=== PATIENT | male | born 1940 | race Caucasian/White ===

== ENCOUNTER 2017-05-05 19:15 | Emergency (ER) | payer MEDICARE, OTHER, BC ==
[~2017-05-05] VITALS: Ht 180.3 cm; Wt 84.1 kg
[2017-05-05 19:28] VITALS: TEMP 97.2
[2017-05-05 20:07] LABS: COLLECTION METHOD CLEAN CATCH
[2017-05-05 20:15] LABS: MUCOUS Present /lpf; PH 5 (5-8); SQUAMOUS EPITHELIAL None Seen /hpf; URINE APPEARANCE Cloudy; URINE BACTERIA Rare /hpf; URINE BILIRUBIN Negative (NEGATIVE); URINE BLOOD 3+ (NEGATIVE); URINE COLOR Amber; URINE GLUCOSE Negative (NEGATIVE); URINE KETONE Negative (NEGATIVE); URINE LEUKOCYTE ESTERASE Negative (NEGATIVE); URINE NITRATE Negative (NEGATIVE); URINE PROTEIN(semi-quant) 2+ (NEGATIVE); URINE RBC >50 /hpf; URINE UROBILINOGEN Negative (NEGATIVE)
[2017-05-05 20:17] LABS: BASO # 0.1 (0.0-0.2); BASO % 0.5 % (0.0-2.0); EOS # 0.2 (0.0-0.7); EOS % 1.8 % (0-4.0); GRAN # 9.4 (1.4-6.5); HEMATOCRIT 42.2 % (42.0-52.0); HEMOGLOBIN 14.3 g/dl (13.5-18.0); LYMPH # 1.2 (1.2-3.4); LYMPH % 9.7 % (20.0-51.0); MEAN CELL VOLUME 88 fl (80.0-100.0); MEAN CORPUSCULAR HEMOGLOBIN 30 pg (27.0-31.0); MEAN CORPUSCULAR HGB CONC 34 g/dl (33.0-37.0); MEAN PLATELET VOLUME 9.6 fl (7.4-10.4); MONO # 1.5 (0.1-0.6); MONO % 11.7 % (1.7-9.3); PLATELET COUNT 230 K/mm3 (130-400); RED BLOOD COUNT 4.81 M/mm3 (4.20-5.60); REDCELL DISTRIBUTION WIDTH-CV 13.5 % (11.5-14.5)
[2017-05-05 20:27] LABS: ALBUMIN 4.5 gm/dL (3.5-5.0); BILIRUBIN,TOTAL 1.2 mg/dL (0.0-1.0); CALCIUM 9.3 mg/dL (8.4-10.2); CREATININE, serum 0.97 mg/dL (0.66-1.25); POTASSIUM 4.1 mmol/L (3.4-5.0); TOTAL PROTEIN 7.7 gm/dL (6.4-8.2)
[2017-05-05] MEDS ORDERED: LIPITOR 10MG10 MG PO (21:17)
[2017-05-05] MEDS ORDERED: REFRESH CELLUVI1 SOL OP (21:17)
[2017-05-05] MEDS ORDERED: TRAVATAN Z 5 ML5 ML (21:18)
[2017-05-05] MEDS ORDERED: PRILOSEC 20MG20 MG PO (21:18)
[2017-05-05] MEDS ORDERED: PROSCAR 5MG5 MG PO (21:19)
[2017-05-05] MEDS ORDERED: RAPAFLO4 MG PO (21:19)
[2017-05-05] MEDS ORDERED: LASIX 40MG TABL40 MG PO (21:19)
[2017-05-05] MEDS ORDERED: TOPROL XL 50MG50 MG PO (21:19)
[2017-05-05] MEDS ORDERED: LOTEMAX 5 ML 5 M5 ML (21:20)
[2017-05-05] MEDS ORDERED: PREDFORTE5ML (21:20)
[2017-05-05] MEDS ORDERED: VITAMIN C500 MG PO (21:20)
[2017-05-05] MEDS ORDERED: MULTI VITAMINS1 TAB PO (21:21)
[2017-05-05] MEDS ORDERED: ASPIRIN 81M81 MG/TA2 PO (21:21)
[2017-05-05 22:17] VITALS: BP 153/94; PULSE 70
== END 2017-05-05 22:10 | disposition home or self-care (01) ==
LOC: COL.ER 19:15
PROVIDERS: Emergency Medicine
DX: N20.0 Calculus of kidney (principal); I10 Essential (primary) hypertension; E78.5 Hyperlipidemia, unspecified; Z90.49 Acquired absence of other specified parts of digestive tract; Z79.52 Long term (current) use of systemic steroids; Z79.82 Long term (current) use of aspirin; Z87.891 Personal history of nicotine dependence
CPT/HCPCS: J0696; J2765; J3010; J7030

== ENCOUNTER 2018-05-04 15:24 | Emergency (ER) | payer MEDICARE, OTHER, BC ==
[~2018-05-04] VITALS: Ht 177.8 cm; Wt 77.3 kg
[~2018-05-04 15:24] MED LIST: ASPIRIN 81M81 MG/TA2 PO; LASIX 40MG TABL40 MG PO; LIPITOR 10MG10 MG PO; LOTEMAX 5 ML 5 M5 ML; MULTI VITAMINS1 TAB PO; PREDFORTE5ML; PRILOSEC 20MG20 MG PO; PROSCAR 5MG5 MG PO; RAPAFLO4 MG PO; REFRESH CELLUVI1 SOL OP; TOPROL XL 50MG50 MG PO; TRAVATAN Z 5 ML5 ML; VITAMIN C500 MG PO
[2018-05-04 15:32] VITALS: TEMP 97.8
[2018-05-04 16:12] LABS: BASO % 0.5 % (0.0-2.0); EOS # 0.1 (0.0-0.7); EOS % 1.2 % (0-4.0); GRAN # 7.1 (1.4-6.5); GRAN % 82.5 % (42.2-75.2); HEMATOCRIT 39.7 % (42.0-52.0); HEMOGLOBIN 13.4 g/dl (13.5-18.0); LYMPH # 0.7 (1.2-3.4); LYMPH % 7.5 % (20.0-51.0); MEAN CELL VOLUME 87 fl (80.0-100.0); MEAN CORPUSCULAR HEMOGLOBIN 29 pg (27.0-31.0); MEAN CORPUSCULAR HGB CONC 34 g/dl (33.0-37.0); MEAN PLATELET VOLUME 9.6 fl (7.4-10.4); MONO # 0.7 (0.1-0.6); MONO % 8.1 % (1.7-9.3); PLATELET COUNT 184 K/mm3 (130-400); RED BLOOD COUNT 4.57 M/mm3 (4.20-5.60)
[2018-05-04 16:22] LABS: ALBUMIN 4.2 gm/dL (3.5-5.0); BILIRUBIN,TOTAL 1.1 mg/dL (0.0-1.0); CALCIUM 9.6 mg/dL (8.4-10.2); CREATININE, serum 0.95 mg/dL (0.66-1.25); POTASSIUM 4.2 mmol/L (3.4-5.0)
[2018-05-04 17:24] LABS: COLLECTION METHOD CLEAN CATCH
[2018-05-04 17:44] LABS: MUCOUS Present /lpf; PH 5 (5-8); SQUAMOUS EPITHELIAL None Seen /hpf; URINE APPEARANCE Hazy; URINE BACTERIA None Seen /hpf; URINE BILIRUBIN Negative (NEGATIVE); URINE BLOOD 3+ (NEGATIVE); URINE COLOR Yellow; URINE GLUCOSE Negative (NEGATIVE); URINE KETONE 1+ (NEGATIVE); URINE LEUKOCYTE ESTERASE Negative (NEGATIVE); URINE NITRATE Negative (NEGATIVE); URINE PROTEIN(semi-quant) Negative (NEGATIVE); URINE RBC >50 /hpf; URINE UROBILINOGEN Negative (NEGATIVE)
[2018-05-04] MEDS ORDERED: NORCO 325 MG-51 TAB PO (18:25)
[2018-05-04] MEDS ORDERED: ZOFRAN ODT4 MG PO (18:25)
[2018-05-04 18:37] VITALS: BP 154/84; PULSE 76
== END 2018-05-04 18:37 | disposition home or self-care (01) ==
LOC: COL.ER 15:24
PROVIDERS: Emergency Medicine
DX: N20.1 Calculus of ureter (principal); I10 Essential (primary) hypertension; E78.5 Hyperlipidemia, unspecified; Z87.442 Personal history of urinary calculi
CPT/HCPCS: J2405; J3010; J7030

== ENCOUNTER 2018-06-27 07:34 | Outpatient (CLI) | payer MEDICARE, BC, OTHER ==
[~2018-06-27] VITALS: Ht 177.8 cm; Wt 76.0 kg
[~2018-06-27 07:34] MED LIST changes: -LOTEMAX 5 ML 5 M5 ML; +LOTEMAX 5 ML 5 M5 ML OS; +NORCO 325 MG-51 TAB PO; +ZOFRAN ODT4 MG PO
[2018-06-27] MEDS ORDERED: ELIQUIS 5MG PO (08:28)
[2018-06-27] MEDS ORDERED: VITAMIN D31000 I1 PO (08:30)
[2018-06-27 08:51] LABS: HEMATOCRIT 37.6 % (42.0-52.0); HEMOGLOBIN 12.4 g/dl (13.5-18.0); MEAN CELL VOLUME 90 fl (80.0-100.0); MEAN CORPUSCULAR HEMOGLOBIN 30 pg (27.0-31.0); MEAN CORPUSCULAR HGB CONC 33 g/dl (33.0-37.0); MEAN PLATELET VOLUME 10.1 fl (7.4-10.4); PLATELET COUNT 152 K/mm3 (130-400); REDCELL DISTRIBUTION WIDTH-CV 14.2 % (11.5-14.5)
[2018-06-27 08:57] LABS: INR 1.3 (0.8-3.0); PROTHROMBIN TIME 14.5 SECONDS (9.7-12.8)
[2018-06-27 09:00] VITALS: BP 146/88; PULSE 64; TEMP 98
[2018-06-27 09:01] LABS: CALCIUM 9.1 mg/dL (8.4-10.2); CREATININE, serum 0.84 (0.66-1.25); POTASSIUM 4.1 mmol/L (3.4-5.0)
[2018-06-27] MEDS ORDERED: RESTASIS0.05% OU (09:17)
[2018-06-27] MEDS ORDERED: FLAXSEED OIL1000 MG PO (09:19)
[2018-06-27] MEDS ORDERED: UNDECYLENIC ACID TOP (09:27)
[2018-06-27] MEDS ORDERED: LOTEMAX 5 ML 5 M5 ML OD (09:30)
[2018-06-27] MEDS ORDERED: REFRESH OPTIVE0.4 M1 OP (09:35)
[2018-06-27] MEDS ORDERED: SYSTANE 0.4%-0.1 SOL OD (09:37)
[2018-06-27 10:26] VITALS: BP 146/86; PULSE 73
--- NOTE | 2018-06-27 10:26 | NUR ---
Report from Cruz Smith RN-Pt reginald MARIA ELENA well. Pt resting well in bed, at bedside.
[2018-06-27 10:41] VITALS: BP 149/89; PULSE 85; TEMP 97.8
[2018-06-27 10:56] VITALS: BP 155/90; PULSE 64
--- NOTE | 2018-06-27 11:15 | NUR ---
Pt has ambulated, voided and reginald PO intake s n/v. PIV removed with catheter intact.
[2018-06-27 11:20] VITALS: BP 152/85; PULSE 62
--- NOTE | 2018-06-27 11:40 | NUR ---
Pt discharged per w/c by nurse with .
== END 2018-06-27 11:47 | disposition home or self-care (01) ==
LOC: COL.RAD 07:34
PROVIDERS: Internal Medicine Cardiovascular Disease
DX: I34.0 Nonrheumatic mitral (valve) insufficiency (principal)
CPT/HCPCS: J2704; J7030

== ENCOUNTER 2018-12-04 20:31 | Emergency (ER) | payer MEDICARE, BC, OTHER ==
[~2018-12-04] VITALS: Ht 177.8 cm; Wt 77.3 kg
[~2018-12-04 20:31] MED LIST changes: +ELIQUIS 5MG PO; +FLAXSEED OIL1000 MG PO; +LOTEMAX 5 ML 5 M5 ML OD; +REFRESH OPTIVE0.4 M1 OP; +RESTASIS0.05% OU; +SYSTANE 0.4%-0.1 SOL OD; +UNDECYLENIC ACID TOP; +VITAMIN D31000 I1 PO
[2018-12-04 20:46] VITALS: TEMP 97.1
[2018-12-04 21:55] LABS: COLLECTION METHOD CLEAN CATCH
[2018-12-04 22:09] LABS: BASO % 0.7 % (0.0-2.0); EOS # 0.2 (0.0-0.7); EOS % 4.4 % (0-4.0); GRAN # 3.4 (1.4-6.5); GRAN % 62.3 % (42.2-75.2); HEMATOCRIT 37.8 % (42.0-52.0); HEMOGLOBIN 12.5 g/dl (13.5-18.0); LYMPH # 0.9 (1.2-3.4); LYMPH % 17.2 % (20.0-51.0); MEAN CELL VOLUME 90 fl (80.0-100.0); MEAN CORPUSCULAR HEMOGLOBIN 30 pg (27.0-31.0); MEAN CORPUSCULAR HGB CONC 33 g/dl (33.0-37.0); MEAN PLATELET VOLUME 9.8 fl (7.4-10.4); MONO # 0.8 (0.1-0.6); PLATELET COUNT 203 K/mm3 (130-400); REDCELL DISTRIBUTION WIDTH-CV 13.9 % (11.5-14.5)
[2018-12-04 22:17] LABS: ALBUMIN 4.3 gm/dL (3.5-5.0); BILIRUBIN,TOTAL 0.5 mg/dL (0.0-1.0); CALCIUM 8.8 mg/dL (8.4-10.2); CREATININE, serum 0.93 (0.66-1.25); POTASSIUM 3.9 mmol/L (3.4-5.0); TOTAL PROTEIN 6.9 gm/dL (6.4-8.2)
[2018-12-04 22:20] LABS: AMORPHOUS CRYSTAL Present /uL; MUCOUS Present /lpf; PH 5 (5-8); URINE APPEARANCE Turbid; URINE BACTERIA Rare /hpf; URINE BILIRUBIN Negative (NEGATIVE); URINE BLOOD 3+ (NEGATIVE); URINE COLOR Amber; URINE GLUCOSE Negative (NEGATIVE); URINE KETONE Negative (NEGATIVE); URINE LEUKOCYTE ESTERASE Negative (NEGATIVE); URINE NITRATE Negative (NEGATIVE); URINE PROTEIN(semi-quant) 2+ (NEGATIVE); URINE RBC >50 /hpf
[2018-12-05] MEDS ORDERED: FLOMAX 0.40.4 MG/CAP PO ×2 (00:53→10:47)
[2018-12-05] MEDS ORDERED: CIPRO 500MG TA500 MG PO ×2 (00:56→10:47)
[2018-12-05 01:09] VITALS: BP 138/84; PULSE 73
== END 2018-12-05 01:12 | disposition home or self-care (01) ==
LOC: COL.ER 20:31
PROVIDERS: Emergency Medicine
DX: N20.1 Calculus of ureter (principal); I10 Essential (primary) hypertension; Z90.89 Acquired absence of other organs; Z87.891 Personal history of nicotine dependence; E78.5 Hyperlipidemia, unspecified; Z87.442 Personal history of urinary calculi
CPT/HCPCS: A4216; J0696; J7030

== ENCOUNTER 2018-12-06 05:20 | Day surgery (SDC) | payer MEDICARE, BC, OTHER ==
[2018-12-06] VITALS (10 sets, daily range): BP systolic 136–156; BP diastolic 65–83; PULSE 59–77; TEMP 97.6–98.2
[~2018-12-06] VITALS: Ht 177.8 cm; Wt 75.7 kg
[~2018-12-06 05:20] MED LIST changes: +CIPRO 500MG TA500 MG PO; +FLOMAX 0.40.4 MG/CAP PO
--- NOTE | 2018-12-06 05:58 | NUR ---
Pt. arrived to the floor by wheelchair. Pt. is A&OX3, assessment complete.
--- NOTE | 2018-12-06 09:00 | NUR ---
Patient is back from surgery. Denies pain at this time. No complaints of nausea. Explained he has to eat, drink and urinate before going home. Patient verbalized understanding. No other changes at this time. Patients is at bedside. No other changes at this time. Call light within reach.
--- NOTE | 2018-12-06 12:00 | NUR ---
Patient is voiding. He is worried because he has some blood in his urine. Explained that can happen after this procedure. No clots noted in his urine. Explained that drinking water and fluids will help keep the bladder flushed. Patient denies pain or burning with urination. No other changes at this time. Call light within reach.
--- NOTE | 2018-12-06 13:10 | NUR ---
Patient is discharging home. Discharge instructions discussed with patient. No questions verbalized. INT discontinued. Explained they need to call Saturday to schedule a follow up appointment. already has patients belongings packed up. Copie of discharge instructions sent with patient. Patient walked out via wheel chair by Tangela BAY.
--- NOTE | 2018-12-06 14:57 | NUR ---
Plan is to return home with as support system. Patient reports that his is who does all the care for him. Patient reports that his PCP is Dr. Parker with upcoming appt. Patient shares that he uses [facility] for meds and denies the use of any DME. Patient erpots that his will transport him home. Patient is hard of hearing both ears. Patient denies having any concerns and reports they are ready to go home. Action. Offered home health services, patient declined. Patient denies any additona concerns, educated on community resources.
== END 2018-12-06 13:10 | disposition home or self-care (01) ==
LOC: SDCO 05:20 → SURG 05:20 → SDCO 08:00
DX: N20.2 Calculus of kidney with calculus of ureter (principal); I10 Essential (primary) hypertension; I48.0 Paroxysmal atrial fibrillation; I47.1 Supraventricular tachycardia; E78.5 Hyperlipidemia, unspecified; N39.0 Urinary tract infection, site not specified; K21.9 Gastro-esophageal reflux disease without esophagitis; D64.9 Anemia, unspecified; N40.0 Benign prostatic hyperplasia without lower urinary tract symptoms; Z90.49 Acquired absence of other specified parts of digestive tract; Z79.02 Long term (current) use of antithrombotics/antiplatelets; Z88.8 Allergy status to other drugs, medicaments and biological substances; Z87.891 Personal history of nicotine dependence
CPT/HCPCS: OP; C1769; C2617; J1100; J1885; J2405; J2704; J3010; J7120

== ENCOUNTER 2018-12-23 11:16 | Day surgery (SDC) | payer MEDICARE, BC, OTHER ==
[~2018-12-23] VITALS: Ht 177.8 cm; Wt 72.6 kg
[2018-12-23] MEDS ORDERED: TRAVATAN Z 2.52.5 ML OD (11:51)
[2018-12-23] MEDS ORDERED: AKWA TEARS 15 M15 ML OP (11:51)
[2018-12-23] MEDS ORDERED: [UNRECOGNIZED DRUG - OTHER] PO (11:52)
[2018-12-23 11:53] VITALS: BP 137/95; PULSE 84; TEMP 97.3
--- NOTE | 2018-12-23 13:35 | NUR ---
Dr Ventura at the bedside at this time.
--- NOTE | 2018-12-23 14:00 | NUR ---
Patient to the OR with RANDOLPH Tomas at this time.
[2018-12-23 15:46] VITALS: TEMP 98.4
[2018-12-23 16:00] VITALS: BP 160/78; PULSE 63
--- NOTE | 2018-12-23 16:00 | NUR ---
Patient arrives to [facility] [facility] via cart, accompanied by DIRECTOR DIGITAL ADVERTISING Celena. He is sitting up in bed, alert and oriented. His is at the bedside. Monitoring applied - VSS and WNL on room air. Patient reports mild pain not requiring intervention at this time. He denies nausea. He is offered and receives water to drink. Refuses food at this time. Call light in reach.
[2018-12-23 16:15] VITALS: BP 160/81; PULSE 66
--- NOTE | 2018-12-23 16:15 | NUR ---
Patient resting in room, sipping water. Offered to escort patient to restroom to void. He does not want to do that at this time.
--- NOTE | 2018-12-23 16:32 | NUR ---
Patient voids 50 mL pink urine in urinal. He requests to ambulate to the restroom to void more. Standby assist to restroom at this time.
[2018-12-23 16:45] VITALS: BP 116/90; PULSE 66
--- NOTE | 2018-12-23 16:45 | NUR ---
Patient returns to room after voiding moderate amt pink urine. VSS and WNL on room air. Patient states "I'm ready to go home".
--- NOTE | 2018-12-23 17:11 | NUR ---
Discharge instructions discussed, denies any questions, and verbalizes understanding. PIV removed with catheter intact and hemostasis achieved. Patient changing to clothing independently.
--- NOTE | 2018-12-23 17:29 | NUR ---
Patient escorted to exit via wheelchair. Discharged home with ride in private vehicle at 1729.
== END 2018-12-23 17:29 | disposition home or self-care (01) ==
LOC: SDCO 11:16
DX: N20.2 Calculus of kidney with calculus of ureter (principal); N40.0 Benign prostatic hyperplasia without lower urinary tract symptoms; K21.9 Gastro-esophageal reflux disease without esophagitis; E78.5 Hyperlipidemia, unspecified; E88.81 Metabolic syndrome and other insulin resistance; B35.1 Tinea unguium; I10 Essential (primary) hypertension; I48.0 Paroxysmal atrial fibrillation; D64.9 Anemia, unspecified; N39.0 Urinary tract infection, site not specified; Z98.52 Vasectomy status; Z79.01 Long term (current) use of anticoagulants; Z87.891 Personal history of nicotine dependence; J45.909 Unspecified asthma, uncomplicated; Z83.3 Family history of diabetes mellitus; Z80.1 Family history of malignant neoplasm of trachea, bronchus and lung; Z82.3 Family history of stroke
CPT/HCPCS: C1769; C2617; J0690; J1100; J2405; J2704; J3010; J7120

== ENCOUNTER 2020-11-15 18:51 | Observation (INO) | payer MEDICARE, BC, OTHER ==
[~2020-11-15] VITALS: Ht 180.3 cm; Wt 78.6 kg
[~2020-11-15 18:51] MED LIST changes: +AKWA TEARS 15 M15 ML OP; +TRAVATAN Z 2.52.5 ML OD; +[UNRECOGNIZED DRUG - OTHER] PO
[2020-11-15 20:16] LABS: BASO % 0.6 % (0.0-2.0); EOS # 0.3 (0.0-0.7); EOS % 3.8 % (0-4.0); GRAN # 4.5 (1.4-6.5); GRAN % 66.3 % (42.2-75.2); HEMATOCRIT 38.6 % (42.0-52.0); HEMOGLOBIN 13.1 g/dl (13.5-18.0); MEAN CELL VOLUME 87 fl (80.0-100.0); MEAN CORPUSCULAR HEMOGLOBIN 30 pg (27.0-31.0); MEAN CORPUSCULAR HGB CONC 34 g/dl (33.0-37.0); MEAN PLATELET VOLUME 9.8 fl (7.4-10.4); MONO % 14.9 % (1.7-9.3); PLATELET COUNT 217 K/mm3 (130-400); RED BLOOD COUNT 4.42 M/mm3 (4.20-5.60)
[2020-11-15 20:25] LABS: COLLECTION METHOD CLEAN CATCH
[2020-11-15 20:34] LABS: ALBUMIN 4.4 gm/dL (3.5-5.0); BILIRUBIN,TOTAL 0.8 mg/dL (0.0-1.0); C-REACTIVE PROTEIN 0.8 mg/dL (0.0-0.9); CALCIUM 9.1 mg/dL (8.4-10.2); CREATININE, serum 1.2 (0.66-1.25); POTASSIUM 3.9 mmol/L (3.4-5.0); TOTAL PROTEIN 7.3 gm/dL (6.4-8.2)
[2020-11-15 20:44] LABS: MUCOUS Present /lpf; PH 5 (5-8); SQUAMOUS EPITHELIAL None Seen /hpf; URINE APPEARANCE Cloudy; URINE BACTERIA None Seen /hpf; URINE BILIRUBIN Negative (NEGATIVE); URINE BLOOD 3+ (NEGATIVE); URINE COLOR Red; URINE GLUCOSE Negative (NEGATIVE); URINE KETONE Negative (NEGATIVE); URINE LEUKOCYTE ESTERASE Negative (NEGATIVE); URINE NITRATE Negative (NEGATIVE); URINE PROTEIN(semi-quant) 2+ (NEGATIVE); URINE RBC >50 /hpf; URINE UROBILINOGEN Negative (NEGATIVE)
[2020-11-16] VITALS (9 sets, daily range): BP systolic 121–154; BP diastolic 62–74; PULSE 58–70; TEMP 98.1–98.4
--- NOTE | 2020-11-16 10:00 | NUR ---
Patient alert and oriented, answers questions appropriately. See assessment. Abdomen soft, non tender, non distended. Bowel sounds active x4 quads. No c/o flank pain. No other c/o at this time.
[2020-11-16] MEDS ORDERED: COMBIGAN 0.2%-0.5 ML OS (12:10)
[2020-11-16] MEDS ORDERED: PREDFORTE5ML OD (12:19)
[2020-11-16] MEDS ORDERED: TIMOLOL MALEATE5 M1 OP (12:21)
[2020-11-16] MEDS ORDERED: TRAVATAN Z 2.52.5 ML OS (12:22)
--- NOTE | 2020-11-16 12:34 | NUR ---
First visit from the spa director/finance. No needs right now.
--- NOTE | 2020-11-16 14:37 | NUR ---
Seed Service Advisor contacted patient's , Minnie (ph#[phone]) to discuss discharge planning as patient was in surgery. Patient lives in [place] with Minnie and sees Dr. Parker for primary care. Patient obtains medications from [facility] and does not normally use any DME. Patient is normally independent with ADLS and plans to return home upon discharge. Patient does not have Advance Directives in EMR and Minnie does not think patient has ever completed DPOA-HC. Minnie advised patient may be interested in completing the form during hospital stay. Discharge Plan: Home
--- NOTE | 2020-11-16 16:00 | NUR ---
Patient returns post op cysto, assessment unchanged. Post op vitals initiated.
[2020-11-16] MEDS ORDERED: OMNICEF 300MG300 MG PO (16:48)
--- NOTE | 2020-11-16 19:24 | NUR ---
Discharge instructions reviewed with patient and spouse, verbalized understandng. Discharged via wheelchair to auto/home with spouse at 1924.
== END 2020-11-16 19:25 | disposition home or self-care (01) ==
LOC: COL.ER 18:51 → SURG 11-16 00:14
PROVIDERS: Nurse Practitioner; ADMIT Student in an Organized Health Care Education/Training Program
DX: N13.2 Hydronephrosis with renal and ureteral calculous obstruction (principal); N39.0 Urinary tract infection, site not specified; I25.10 Atherosclerotic heart disease of native coronary artery without angina pectoris; I10 Essential (primary) hypertension; K21.9 Gastro-esophageal reflux disease without esophagitis; H40.9 Unspecified glaucoma; E78.5 Hyperlipidemia, unspecified; N40.1 Benign prostatic hyperplasia with lower urinary tract symptoms; H04.123 Dry eye syndrome of bilateral lacrimal glands; Z79.01 Long term (current) use of anticoagulants; Z79.899 Other long term (current) drug therapy; Z94.7 Corneal transplant status; Z79.52 Long term (current) use of systemic steroids
CPT/HCPCS: C1769; G0378; J0690; J0696; J1885; J2405; J2704; J3010; J7030; Q9967

== ENCOUNTER 2021-08-17 04:54 | Observation (INO) | payer MEDICARE, BC, OTHER ==
[2021-08-17] VITALS (9 sets, daily range): BP systolic 109–152; BP diastolic 68–90; PULSE 60–117; TEMP 97.2–97.8
[~2021-08-17] VITALS: Ht 180.3 cm; Wt 75.0 kg
[~2021-08-17 04:54] MED LIST changes: +COMBIGAN 0.2%-0.5 ML OS; +OMNICEF 300MG300 MG PO; +PREDFORTE5ML OD; +TIMOLOL MALEATE5 M1 OP; +TRAVATAN Z 2.52.5 ML OS
[2021-08-17 07:46] LABS: COLLECTION METHOD CLEAN CATCH
[2021-08-17 07:58] LABS: MUCOUS Present (NOT PRESENT); PH 7 (5-8); SQUAMOUS EPITHELIAL 0-2 /hpf (0-10); URINE APPEARANCE Hazy (CLEAR/HAZY); URINE BACTERIA Rare /hpf (NONE SEEN); URINE BILIRUBIN Negative (NEGATIVE); URINE BLOOD 3+ (NEGATIVE); URINE COLOR Yellow (YELLOW); URINE GLUCOSE Negative (NEGATIVE); URINE KETONE Negative (NEGATIVE); URINE LEUKOCYTE ESTERASE Negative (NEGATIVE); URINE NITRATE Negative (NEGATIVE); URINE PROTEIN(semi-quant) Negative (NEGATIVE); URINE RBC >50 /hpf (0-2); URINE UROBILINOGEN Negative (NEGATIVE)
[2021-08-17 10:44] LABS: BASO % 0.3 % (0.0-2.0); EOS # 0.1 K/mm3 (0.0-0.7); EOS % 1.6 % (0.0-4.0); GRAN # 6.2 K/mm3 (1.4-6.5); GRAN % 71.1 % (42.2-75.2); HEMATOCRIT 39.6 % (42.0-52.0); LYMPH % 11.1 % (20.0-51.0); MEAN CELL VOLUME 90 fl (80.0-100.0); MEAN CORPUSCULAR HEMOGLOBIN 30 pg (27-31); MEAN CORPUSCULAR HGB CONC 33 g/dl (33.0-37.0); MONO # 1.4 K/mm3 (0.1-0.6); MONO % 15.6 % (1.7-9.3); PLATELET COUNT 199 K/mm3 (130-400); RED BLOOD COUNT 4.38 M/mm3 (4.20-5.60); REDCELL DISTRIBUTION WIDTH-CV 14.1 % (11.5-14.5)
[2021-08-17 10:46] LABS: ALBUMIN 3.8 gm/dL (3.4-4.8); BILIRUBIN,TOTAL 0.9 mg/dL (0.2-1.2); CALCIUM 9.1 mg/dL (8.4-10.2); CREATININE, serum 1.07 mg/dL (0.72-1.25); POTASSIUM 4.3 mmol/L (3.5-4.5); TOTAL PROTEIN 6.8 gm/dL (6.2-8.1)
--- NOTE | 2021-08-17 11:56 | NUR ---
PT ADMITTED TO UNIT. ADMISSION INTAKE AND ASSESSMENT COMPLETED. MED REC UPDATED. PT ORIENTED TO ROOM. AT BEDSIDE. NPO AT THIS TIME FOR PROCEDURE. WILL CONTINUE TO MONITOR.
[2021-08-17 12:25] LABS: INR 1.2 (0.8-3.0); PROTHROMBIN TIME 14.3 SECONDS (9.7-12.8)
[2021-08-17 12:28] LABS: PARTIAL THROMBOPLASTIN TIME 26.8 SECONDS (26.0-37.0)
--- NOTE | 2021-08-17 18:50 | NUR ---
RETURNED FROM PACU. A&O. CUSSING HE WANTS A FAN. CALLED HOUSE SUPERVISIOR. DENIES PAIN. TELE SHOWS AFIB. EKG ORDERED. BROUGHT IN HOME MEDS AND THESE WERE SENT TO PHARMACY. CALL LIGHT IN REACH. BED ALARM SET.
--- NOTE | 2021-08-17 20:16 | NUR ---
PT ATTEMPTING TO VOID PER URINAL. DENIES PAIN. IV PER GRAVITY AT 75CC/HR. PT TAKING PO FLUIDS WELL. VSS.
--- NOTE | 2021-08-17 21:00 | NUR ---
ATTEMPTED SEVERAL TIMES TO CALL FOR PT DC TONIGHT. NO ANSWER. LEFT VOICEMAIL. NO RETURN CALL.
--- NOTE | 2021-08-17 22:41 | NUR ---
NOTIFIED DR GONZALEZ UNABLE TO CONTACT FOR RIDE HOME. OK TO STAY.
[2021-08-18 00:12] VITALS: BP 122/67; PULSE 66; TEMP 98.3
--- NOTE | 2021-08-18 01:57 | NUR ---
PT INCONTINENT OF URINE. LAVERN AREA RED. CLEANED AND BARRIER OINTMENT APPLIED.
--- NOTE | 2021-08-18 02:00 | NUR ---
PT GOT OUT OF BED. PULLING ON IV AND URINATING ON FLOOR. ASSISTED BACK TO BED. PT USING PROFANITY TOWARDS STAFF. BED ALARM SET. CALL LIGHT IN REACH.
[2021-08-18 03:46] VITALS: BP 127/62; PULSE 57; TEMP 97.7
--- NOTE | 2021-08-18 04:08 | NUR ---
PT HAS VOIDED SEVERAL TIMES. NO PAIN. CALL LIGHT IN REACH.
--- NOTE | 2021-08-18 05:11 | NUR ---
PT AMB IN ROOM. VOIDED ON FLOOR REDDISH CLEAR URINE. CUSSING AT STAFF. WONT GO BACK TO BED.
--- NOTE | 2021-08-18 05:36 | NUR ---
INT NEEDLE DC'D TO RT F/A.
[2021-08-18 07:20] VITALS: BP 111/63; PULSE 83; TEMP 97.9
[2021-08-18 07:27] LABS: BASO % 0.1 % (0.0-2.0); GRAN # 5.8 K/mm3 (1.4-6.5); GRAN % 82.1 % (42.2-75.2); HEMOGLOBIN 11.8 g/dl (13.5-18.0); LYMPH # 0.4 K/mm3 (1.2-3.4); LYMPH % 6.2 % (20.0-51.0); MEAN CELL VOLUME 90 fl (80.0-100.0); MEAN CORPUSCULAR HEMOGLOBIN 30 pg (27-31); MEAN CORPUSCULAR HGB CONC 33 g/dl (33.0-37.0); MEAN PLATELET VOLUME 10.3 fl (7.4-10.4); MONO # 0.8 K/mm3 (0.1-0.6); MONO % 11.2 % (1.7-9.3); PLATELET COUNT 201 K/mm3 (130-400); RED BLOOD COUNT 3.99 M/mm3 (4.20-5.60); REDCELL DISTRIBUTION WIDTH-CV 14.1 % (11.5-14.5)
[2021-08-18 07:58] LABS: CALCIUM 8.8 mg/dL (8.4-10.2); CREATININE, serum 1.01 mg/dL (0.72-1.25); POTASSIUM 4.5 mmol/L (3.5-4.5)
--- NOTE | 2021-08-18 09:37 | NUR ---
Initial visit; Patient thanked Candy Starch Mold Printer for looking in on her and offering God's blessings and to keep him in her prayers.
[2021-08-18] MEDS ORDERED: CEFTIN 250250 MG/TAB PO ×2 (09:53→17:13)
--- NOTE | 2021-08-18 10:30 | NUR ---
DISCHARGE INFORMATION GIVEN TO THE PATIENT AND FAMILY. VERBALIZED UNDERSTANDING OF MEDICATIONS AND APPOINTMENTS SCHEDULED. NO OTHER CONCERNS. PT ESCORTED OUT AT THIS TIME.
--- NOTE | 2021-08-18 11:28 | NUR ---
Tooling Inspector attended clinical rounds with the team and patient to discharge home today. SW met with patient and his , Minnie (ph#[phone]) to discuss discharge planning. Patient lives in [place] and sees Dr. Parker for primary care. Patient obtains medications from [facility] and does not use any DME. Patient is independent with ADLS and plans to return home at time of discharge. Patient does not have Advance Directives but remarks that his is his legal next of kin. Patient will return home with today. Discharge Plan: Home
== END 2021-08-18 11:00 | disposition home or self-care (01) ==
LOC: COL.RAD 04:54 → COL.ER 04:54 → MEDICAL 08:52
PROVIDERS: Emergency Medicine; Personal Emergency Response Attendant; Physician Assistant; ADMIT Student in an Organized Health Care Education/Training Program
DX: N20.1 Calculus of ureter (principal); I10 Essential (primary) hypertension; I25.10 Atherosclerotic heart disease of native coronary artery without angina pectoris; K21.9 Gastro-esophageal reflux disease without esophagitis; N40.0 Benign prostatic hyperplasia without lower urinary tract symptoms; H40.9 Unspecified glaucoma; E78.5 Hyperlipidemia, unspecified; Z79.01 Long term (current) use of anticoagulants
CPT/HCPCS: C1769; C2617; G0378; J0690; J0696; J1100; J1885; J2270; J2405; J2704; J3010; J7120; Q9967

== ENCOUNTER 2022-05-19 01:47 | Observation (INO) | payer MEDICARE, BC, OTHER ==
[~2022-05-19] VITALS: Ht 177.8 cm; Wt 67.7 kg
[~2022-05-19 01:47] MED LIST changes: +CEFTIN 250250 MG/TAB PO
[2022-05-19 02:08] LABS: HEMATOCRIT 38.6 % (42.0-52.0); HEMOGLOBIN 12.8 g/dl (13.5-18.0); MEAN CELL VOLUME 82 fl (80.0-100.0); MEAN CORPUSCULAR HEMOGLOBIN 27 pg (27-31); MEAN CORPUSCULAR HGB CONC 33 g/dl (33.0-37.0); MEAN PLATELET VOLUME 10.4 fl (7.4-10.4); PLATELET COUNT 189 K/mm3 (130-400); REDCELL DISTRIBUTION WIDTH-CV 15.3 % (11.5-14.5)
[2022-05-19 02:26] LABS: ALANINE AMINOTRANSFERASE 21 U/L (0-55); ALBUMIN 3.3 gm/dL (3.4-4.8); ALKALINE PHOSPHATASE 73 U/L (40-150); ANION GAP 13 mmol/L (7-16); AST,SGOT 26 U/L (5-34); BILIRUBIN,TOTAL 0.9 mg/dL (0.2-1.2); BLOOD UREA NITROGEN 19 mg/dL (8-26); CALCIUM 8.6 mg/dL (8.4-10.2); CARBON DIOXIDE 24 mmol/L (23-31); CHLORIDE 111 mmol/L (98-107); CREATININE, serum 1.09 mg/dL (0.72-1.25); GLUCOSE 102 mg/dL (70-99); SODIUM 148 mmol/L (136-145); TOTAL PROTEIN 6.2 gm/dL (6.2-8.1)
[2022-05-19 02:27] LABS: ALCOHOL(ethanol),MEDICAL < 10 mg/dL (0-10)
[2022-05-19 02:33] LABS: TROPONIN-I 0.044 ng/mL (0.00-0.033)
[2022-05-19 02:38] LABS: ANISOCYTOSIS 1+; BAND 1 % (0-10); LYMPHOCYTE 15 % (20.0-51.0); NEUTROPHILS 66 % (42.0-75.2); PLATELET ESTIMATE NORMAL (NORMAL)
[2022-05-19 02:40] LABS: COLLECTION METHOD CLEAN CATCH
[2022-05-19 02:57] LABS: AMORPHOUS CRYSTAL Present (NOT PRESENT); MUCOUS Present (NOT PRESENT); SQUAMOUS EPITHELIAL None Seen /hpf (0-10); URINE BACTERIA Occasional /hpf (NONE SEEN)
[2022-05-19 02:59] LABS: URINE APPEARANCE Hazy (CLEAR/HAZY); URINE COLOR Yellow (YELLOW); URINE GLUCOSE Negative (NEGATIVE); URINE PROTEIN(semi-quant) 2+ (NEGATIVE)
[2022-05-19 03:00] LABS: URINE BLOOD TRACE-INTACT (NEGATIVE); URINE KETONE TRACE (NEGATIVE); URINE NITRATE Positive (NEGATIVE)
[2022-05-19 03:01] LABS: TRICYCLIC ANTIDEPRESS URINE NEGATIVE
[2022-05-19 05:46] VITALS: BP 138/68; PULSE 91; TEMP 97.7
[2022-05-19 07:44] VITALS: BP 128/85; PULSE 61; TEMP 98
--- NOTE | 2022-05-19 10:19 | NUR ---
PT SITTING UP IN BED UPON ENTERING ROOM. MORNING MEDICATIONS GIVEN. SHIFT ASSESSMENT COMPLETED. PT CURRENTLY NOT REQUIRING OXYGEN. PT ABLE TO ANSWER SOME QUESTIONS APPROPRIATELY BUT HAS DIFFICULTY HEARING. CALL LIGHT WITHIN REACH. BED ALARMS IN PLACE. WILL CONTINUE TO MONITOR.
--- NOTE | 2022-05-19 11:46 | NUR ---
Escrow Clerk rounds: Doctor had just left Patient's room when Escrow Clerk arrived to offer visit. Patient seemed to have been in a "cranky" mood for Doctor. Escrow Clerk tried to offer visit. Patient appeared to be sleeping. Escrow Clerk visit not offered or completed.
[2022-05-19 12:08] VITALS: BP 133/87; PULSE 93; TEMP 97.5
[2022-05-19 16:05] VITALS: BP 129/70; PULSE 105; TEMP 97.6
--- NOTE | 2022-05-19 16:26 | NUR ---
Attempt made to contact patient via room phone and was unsuccessful. Phone call made to patients Minnie and message left.
[2022-05-19 19:21] VITALS: BP 110/81; PULSE 51; TEMP 97.7
[2022-05-19 23:00] VITALS: BP 132/81; PULSE 62; TEMP 97.8
[2022-05-20 03:00] VITALS: BP 144/75; PULSE 94; TEMP 97.2
[2022-05-20 06:44] LABS: HEMOGLOBIN 11.7 g/dl (13.5-18.0); MEAN CELL VOLUME 82 fl (80.0-100.0); MEAN CORPUSCULAR HEMOGLOBIN 27 pg (27-31); MEAN CORPUSCULAR HGB CONC 33 g/dl (33.0-37.0); PLATELET COUNT 201 K/mm3 (130-400); RED BLOOD COUNT 4.33 M/mm3 (4.20-5.60); REDCELL DISTRIBUTION WIDTH-CV 15.6 % (11.5-14.5)
[2022-05-20 06:45] LABS: HEMATOCRIT 35.5 % (42.0-52.0)
[2022-05-20 07:02] LABS: ALBUMIN 2.5 gm/dL (3.4-4.8); CALCIUM 7.9 mg/dL (8.4-10.2); CREATININE, serum 0.92 mg/dL (0.72-1.25); PHOSPHOROUS 2.8 mg/dL (2.3-4.7); POTASSIUM 3.3 mmol/L (3.5-4.5)
[2022-05-20 08:02] LABS: BAND 10 % (0-10); NEUTROPHILS 64 % (42.0-75.2)
[2022-05-20 08:04] LABS: BURR CELLS 3+; OVALOCYTES 1+
[2022-05-20 08:07] LABS: SCHISTOCYTES 1+
[2022-05-20 08:09] LABS: MAGNESIUM 1.7 mg/dL (1.6-2.6)
[2022-05-20 08:10] VITALS: BP 148/84; PULSE 103; TEMP 97.3
[2022-05-20 08:10] LABS: LYMPHOCYTE 18 % (20.0-51.0)
[2022-05-20 08:19] LABS: ANISOCYTOSIS 1+; PLATELET ESTIMATE NORMAL (NORMAL)
--- NOTE | 2022-05-20 09:58 | NUR ---
PT RESTING IN BED UPON ENTERING ROOM. MORNING MEDICATIONS GIVEN. SHIFT ASSESSMENT COMPLETED. PT EXPERIENCING SOME APHASIA AND STUTTERING WHEN TRYING TO COMMUNICATE NEEDS. PT REPOSITIONED IN BED, CALL LIGHT WITHIN REACH, BED ALARMS IN PLACE. TELE CALLED AND NOTIFIED THIS RN OF HEART RATE IN 150-160S, DR. NEAL NOTIFIED, WILL CONSULT IT HELP DESK ASSOCIATE AND OBTAIN AN EKG. WILL CONTINUE TO MONITOR.
[2022-05-20 11:53] VITALS: BP 128/72; PULSE 98; TEMP 97.3
[2022-05-20 15:53] VITALS: BP 135/71; PULSE 87; TEMP 98.2
[2022-05-20 20:05] VITALS: BP 123/74; PULSE 55; TEMP 98.4
[2022-05-20 23:25] VITALS: BP 119/87; PULSE 97; TEMP 97.9
--- NOTE | 2022-05-21 03:32 | NUR ---
PATIENT ATTEMPTED TO GET OUT OF BED ONCE THIS SHIFT THINKING HE NEEDED TO GO TO RESTROOM FOR URINATION, REDIRECTED AND REPOSITIONED PATIENT BACK IN BE AND EDUCATED PT ON CATHETER THAT IS IN PLACE. PATIENT ALSO WANTED DOOR OPEN BUT WAS EDUCATED THAT D/T ISOLATION STATUS IT NEEDS TO STAY CLOSED. OTHERWISE PT RESTED COMFORTABLY IN LOW BED WITH CALL LIGHT AND PERSONAL ITEMS WITHIN REACH WITH FALL PRECAUTIONS IN PLACE.
--- NOTE | 2022-05-21 07:00 | NUR ---
PT IS AXOX2 AND FORGETFUL. PT FREQUENTLY REORIENTED. PT IS ON RA. VSS. BEDALARM ACTIVE AND TELE SITTER BEDSIDE. PT HAS CALL LIGHT AND INSTRUCTED TO CALL WITH ALL NEEDS.
[2022-05-21 07:19] VITALS: BP 138/79; PULSE 81; TEMP 98.1
[2022-05-21 08:15] LABS: PATHOLOGY DIFF REVIEW OK
[2022-05-21 11:38] VITALS: BP 117/67; PULSE 51; TEMP 98.3
--- NOTE | 2022-05-21 15:37 | NUR ---
tube carrier met with Patient at bedside to conduct Care Managment Assessment and discuss discharge planning. When identifying self, Patient stated "if you are a social media sr strategy manager you can't come in" SW attempted to clarify the reason for the visit. SW attempted to contact PAtient's , Minnie multiple times with no answer and unable to leave voicemail. SW spoke with RANDOLPH Trejo requesting assistance with connecting Minnie with this SW for discharge coordination for Home Health services.
[2022-05-21 15:41] VITALS: BP 119/70; PULSE 60; TEMP 98.4
--- NOTE | 2022-05-21 16:19 | NUR ---
Pipeline Superintendent was contacted by Minnie, Patient's through Nurse Trejo. Minnie reported that they live in [place], [place] with their four small dogs with eastabished with PCP Dr. Parker and has Medicare AB, BCBS and for life. She reports that Patient does not use O2, DME or home health servieces prior to admission. Minnie reports that she is Patient's primary caregiver and assists him with ADLs/IADLs. Given the options of HH and SNF, Minnie reports that she intends on Patient to discharge home with HH services but would like to see what Psysician reccommends in the AM at which time she will decide for SNF or HH referral.
[2022-05-21 20:51] VITALS: BP 117/68; PULSE 63; TEMP 97.9
[2022-05-21 23:27] VITALS: BP 114/78; PULSE 84; TEMP 98.6
[2022-05-22 04:44] VITALS: BP 120/75; PULSE 78; TEMP 97.9
[2022-05-22 06:42] LABS: HEMOGLOBIN 12.1 g/dl (13.5-18.0); MEAN CELL VOLUME 82 fl (80.0-100.0); MEAN CORPUSCULAR HEMOGLOBIN 27 pg (27-31); MEAN CORPUSCULAR HGB CONC 33 g/dl (33.0-37.0); MEAN PLATELET VOLUME 10.9 fl (7.4-10.4); PLATELET COUNT 222 K/mm3 (130-400); RED BLOOD COUNT 4.44 M/mm3 (4.20-5.60); REDCELL DISTRIBUTION WIDTH-CV 15.3 % (11.5-14.5)
[2022-05-22 06:48] LABS: HEMATOCRIT 36.4 % (42.0-52.0)
[2022-05-22 07:03] LABS: ALBUMIN 2.6 gm/dL (3.4-4.8); CALCIUM 8.2 mg/dL (8.4-10.2); CREATININE, serum 0.87 mg/dL (0.72-1.25); MAGNESIUM 1.6 mg/dL (1.6-2.6); PHOSPHOROUS 2.5 mg/dL (2.3-4.7); POTASSIUM 4.2 mmol/L (3.5-4.5)
[2022-05-22 08:00] VITALS: BP 110/75; PULSE 79; TEMP 98
[2022-05-22 08:08] LABS: LYMPHOCYTE 13 % (20.0-51.0); MYELOCYTE 1 % (0-0); NEUTROPHILS 74 % (42.0-75.2)
[2022-05-22 08:09] LABS: SCHISTOCYTES 3+
[2022-05-22 08:12] LABS: PLATELET ESTIMATE NORMAL (NORMAL)
--- NOTE | 2022-05-22 09:18 | NUR ---
The hospitalist approached SW. The hospitalist would like to patient to be screened for IPR. SW consulted [facility]. Awaiting screen.
--- NOTE | 2022-05-22 11:42 | NUR ---
Romy, with [facility], reports that they can continue to follow the patient, but they will not have a bed until and that their team does not think the patient will be able to participate in 3 hours of therapy.
[2022-05-22 12:36] VITALS: BP 126/66; PULSE 73; TEMP 98
--- NOTE | 2022-05-22 14:06 | NUR ---
PATIENT IS PULLING AT LINE AND ATTEMPTING TO JUMP OUT OF THE BED MULTIPLE TIMES. PULLED OUT IV ON ARM, AND TAKES OFF MEAT PROCESSOR. PATIENT ALSO YELLS AND SWEARS AT STAFF. IS AWARE AND SAID IT WAS OKAY NOT TO ATTEMPT ANOTHER IV. SEROQUEL PO AND HALDOL IM ORDERED. WILL CONTINUE TO MONITOR. VIDEO MONITOR AND BED ALARM ON.
--- NOTE | 2022-05-22 15:42 | NUR ---
Truck Unloader was contacted by Ruben, PAtient's son to discuss discharge planning. Ruben agreed to provide SW with a home health agency preferance in the AM to support discharge plan of discharging home with home health services. Ruben reports that the home is not in a condition to support Patient's needs at this time and he intends on cleaning the home this coming to support discharge plan. SW will contact Ruben in the AM to recieve HH rpeference.
--- NOTE | 2022-05-22 15:43 | NUR ---
PATIENT HAS BEEN IMPULSIVE ALL DAY, PULLING AT LINES. MD ORDERED 25MG SEROQUEL ORALLY. PATIENT DID TAKE THE MED AND IS CURRENTLY RESTING. BED ALARM AND VIDEO SURVEILLANCE IS STILL ORDERED. PSYCH WAS CONSULTED FOR BEHAVIORAL DISTURBANCE. PATIENT DID GET UP WITH NURSING TO USE RESTROOM AND DID OKAY WALKING WITH THE WALKER. PATIENT IS STILL UNSTEADY AND NEEDS CLOSE MONITORING.
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
--- NOTE | 2022-05-22 18:00 | NUR ---
PATIENT CONTINUES TO ACT OUT VIOLENTLY AND IS GETTING OUT OF BED. OTHER MEASURES WERE NOT WORKING TO KEEP THIS PATIENT SAFE FROM SELF AND STAFF. PUTTING IS COGNITIVELY NOT UNDERSTANDING AND IS A DANGER TO SELF AND STAFF. WRIST RESTRAINTS PLACED AT 1800. CONTINUING TO MONITOR PATIENT.
--- NOTE | 2022-05-22 20:00 | NUR ---
spoke with SADIE Pastrana, per phone, restraint type changed to non-violent, pt has karyna soft wrist restraints in place, pt attempts to get out of bed when restraints released, pt is very weak and confused, has hx of multiple falls, has pulled out IV, was hitting at staff earlier in the day, but somewhat follows commands currently, not hitting staff. telesitter in room, bed alarm on.
[2022-05-22 20:21] VITALS: BP 117/91; PULSE 52; TEMP 98
[2022-05-23 00:01] VITALS: BP 119/83; PULSE 84; TEMP 98.1
[2022-05-23 06:51] LABS: HEMATOCRIT 39.7 % (42.0-52.0); HEMOGLOBIN 12.7 g/dl (13.5-18.0); MEAN CELL VOLUME 85 fl (80.0-100.0); MEAN CORPUSCULAR HEMOGLOBIN 27 pg (27-31); MEAN CORPUSCULAR HGB CONC 32 g/dl (33.0-37.0); MEAN PLATELET VOLUME 11.2 fl (7.4-10.4); PLATELET COUNT 262 K/mm3 (130-400); RED BLOOD COUNT 4.69 M/mm3 (4.20-5.60); REDCELL DISTRIBUTION WIDTH-CV 15.3 % (11.5-14.5)
[2022-05-23 06:57] LABS: ALBUMIN 2.7 gm/dL (3.4-4.8); CALCIUM 8.5 mg/dL (8.4-10.2); CREATININE, serum 0.86 mg/dL (0.72-1.25); MAGNESIUM 2.2 mg/dL (1.6-2.6); PHOSPHOROUS 2.9 mg/dL (2.3-4.7); POTASSIUM 4.7 mmol/L (3.5-4.5)
[2022-05-23 07:20] VITALS: BP 119/61; PULSE 63; TEMP 97.8
--- NOTE | 2022-05-23 07:30 | NUR ---
ON ASSESSMENT, PATIENT WITH BILAT SOFT WRIST RESTRAINTS. PATIENT SLEEPY, ONLY MOANS AND GROANS WHEN TOUCHED. TELE SITTER IN ROOM. PATIENT ON ROOM AIR, VITALS THIS AM STABLE. WILL CONT TO MONITOR
[2022-05-23 07:53] LABS: BAND 2 % (0-10); LYMPHOCYTE 13 % (20.0-51.0); NEUTROPHILS 73 % (42.0-75.2)
[2022-05-23 08:00] LABS: ANISOCYTOSIS 1+; HYPOCHROMIA 1+
[2022-05-23 08:01] LABS: OVALOCYTES 1+
[2022-05-23 08:02] LABS: BURR CELLS 3+
[2022-05-23 08:03] LABS: SPHEROCYTE 1+
--- NOTE | 2022-05-23 09:00 | NUR ---
[facility] RN AT BEDSIDE, PATIENT HAS BEEN YELLING AND CALLING OUT. DOES NOT ANSWER MOST QUESTIONS. RN TO ATTEMPT MEDS AND PROVIDE ONE ON ONE CARE WITH PATIENT AT HIS TIME. ONE RESTRAINT REMOVED PER [facility]. REQUEST. GREASE REFINER OPERATOR AND GRANTS ANALYST AWARE.
--- NOTE | 2022-05-23 09:58 | NUR ---
Pt resting quietly now, with hob 22deg, clean gown, warm blanket, soft restraint to left wrist only. cms intact to this extremity. I worked with pt this am. Initially he was lying supine with bilat soft wrist restraints. With okay from Dr. Rivers, I removed rt wrist restraint, and was able to help pt wash his face and clean his mouth somewhat. Over time was able to administer most of his morning medications delivering them in pudding, and then applesauce. Pt did take some water from a sponge and handled this okay. pt was able to sit at side of bed with help, and stand at bs with assist x1 with gait belt on , and with walker. Pt voided 75 cc clear dark yellow urine into urinal. pt was then assisted back to bed, He was able to take a few tiny steps sideways, but not enough to get into correct position in bed, he was pulled back up into correct position. Pt back in bed now sleeping with mouth open, resp rate approx 34/min. he occasionally arouses yelling "help". bed alarm on, tele sitter in place, wrist restraint x 1 on left wrist. [facility]
--- NOTE | 2022-05-23 10:47 | NUR ---
ZEESHAN was contacted by Ruben, Patient's son to follow-up on discharge planning. Ruben approved a referral to [facility]. ZEESHAN sent referral documents to [facility] ZEESHAN collaborated with doroteo, Patient will discharge home today, Home health will be coordinated by Ruben. Discharge Home Today.
[2022-05-23 10:49] VITALS: BP 117/67; PULSE 78; TEMP 98.1
[2022-05-23] MEDS ORDERED: PROAIR HFA0.09 MG/AC IH (10:54)
[2022-05-23] MEDS ORDERED: TOPROL XL 50MG50 MG PO (10:54)
[2022-05-23] MEDS ORDERED: PRINIVIL2.5 MG PO (10:55)
[2022-05-23] MEDS ORDERED: ZYPREXA 5MG5 MG PO (10:55)
--- NOTE | 2022-05-23 12:34 | NUR ---
PATIENTS INSISTING SHE CAN NOT TAKE PATIENT HOME. EDUCATED HER ON HH SERVICES AND PATIENT STATUS. INFORMED I WOULD BE BACK IN A FEW MINUTES WITH DISCHARGE PAPERWORKA ND WE CAN DISCUSS THINGS FURTHER. WHEN THIS RN WENT BACK TO GIVE DC INSTRUCTIONS, PATIENTS LEFT DOWNSTAIRS PER OTHER RN, SHE WENT TO GO CALL DR PENA ABOUT PATIENTS DISCHARGE. WHEN PATIENTS ARRIVES BACK TO UNIT, IF SHE IS SITLL REFUSING DISCHARGE WILL HAVE MD COME SPEAK WITH HER.
--- NOTE | 2022-05-23 13:00 | NUR ---
PATIENT AWAKE, RESTING IN BED. PATIENT DRESSED, TELE REMOVED (NO IV SITE) AWAITING FAMILY MEMEBER FOR EPIC CUPID SPECIALISTS TO GO HOME.
--- NOTE | 2022-05-23 13:15 | NUR ---
CALLED AND SPOKE WITH ZEESHAN YOUNG, INFORMED HIM PATIENTS CAME UP TO UNIT AND DESPITE EDUCATION FROM THIS RN DID NOT WANT TO TAKE PATIENT HOME, THEN SHE DISSAPPEARED AND HAS NOT CAME BACK TO THE UNIT. PER ZEESHAN HE WILL TOUCH BASE WITH THE FAMILY ON PICKUP.
--- NOTE | 2022-05-23 14:22 | NUR ---
PATIENT DOING BETTER, PER RACHELLE DICKSON PATIETN WAS SITTING UP ABLE TO FEED HIMSELF LUNCH. NO AGRESSION OR AGITATION NOTED. PATIENT STILL WITHOUT RESTRAINTS . PATIETN AWAITING LITHOGRAPHIC RETOUCHER APPRENTICE BY FAMILY.
--- NOTE | 2022-05-23 14:33 | NUR ---
Pt was able to sit at edge of bed and stand with assist as he was dressed for pending discharge. He then sat at edge of bed and ate approx 50-75% of his lunch independently. Swallowing and chewing appeared slow, but pt did not choke at all on his meal. Pt then relaxed back into bed until discharge. environmental services project manager representatives spent time at pt's bedside speaking with pt and his . I then reviewed discharge, prescription and follow up instructions with pt's who verbalized understanding. Pt escorted to exit via wheelchair with RN,PHU and pt's .
--- NOTE | 2022-05-23 15:02 | NUR ---
Geriatric Nurse Assistant collaborated with Ruben, Patient's son, Patient's , and the treatment team to coordinate discharge for this Patient. Patient will discharge home today for follow-up care to be provided by PCP Dr. Parker. Family will address outpatient psychosocial needs with the goal of Patient going SNF LTC. SW briefed the family on the process of obtaining guardianship with the family as well as the process for admission to LTC. [facility] accepted Patient for servics. Discharge packet faxed to [facility]. Patient will discharge home with home health through [facility].
--- NOTE | 2022-05-23 16:02 | NUR ---
PATIENTS IWIFE GIVEN DISCHARGE INSTRUCTIONS AND EDUCATION BY [facility] RN. 2 SOCIAL WORKERS PROVIDED EDUCATION AND SPENT TIME WITH PATIENTS ANSWERING ALL QUESTIONS. PATIENT TAKEN TO PATIENT ENTRANCE VIA WHEELCHAIR BY THIS RN AND PCT. PATIENT ASSISTED INTO VEHICLE, PATIENT LEFT IN STABLE CONDITION IN THE CARE OF HIS .
[2022-05-24] MEDS ORDERED: COMBIGAN 0.2%-0.5 ML OU (04:22)
== END 2022-05-23 16:04 | disposition home health service (06) ==
LOC: COL.ER 01:47 → MEDICAL 04:02
PROVIDERS: Emergency Medicine; Student in an Organized Health Care Education/Training Program; ADMIT Internal Medicine
DX: N39.0 Urinary tract infection, site not specified (principal); U07.1 COVID-19; I21.4 Non-ST elevation (NSTEMI) myocardial infarction; I48.91 Unspecified atrial fibrillation; R91.1 Solitary pulmonary nodule; E87.6 Hypokalemia; R53.1 Weakness; Z28.310 Unvaccinated for COVID-19; Z28.9 Immunization not carried out for unspecified reason; I25.10 Atherosclerotic heart disease of native coronary artery without angina pectoris; I10 Essential (primary) hypertension; H40.9 Unspecified glaucoma; N40.0 Benign prostatic hyperplasia without lower urinary tract symptoms; E78.5 Hyperlipidemia, unspecified; R41.0 Disorientation, unspecified; R45.1 Restlessness and agitation; Z79.899 Other long term (current) drug therapy; Z79.01 Long term (current) use of anticoagulants
CPT/HCPCS: C9113; G0378; J0696; J1100; J1630; J3475; J7030; J8540; Q9967

== ENCOUNTER 2022-05-23 18:30 | Observation (INO) | payer MEDICARE, BC, OTHER ==
[2022-05-23] VITALS (9 sets, daily range): BP systolic 116–136; BP diastolic 64–88; PULSE 97–141
[~2022-05-23] VITALS: Ht 180.3 cm; Wt 86.4 kg
[~2022-05-23 18:30] MED LIST changes: +PRINIVIL2.5 MG PO; +PROAIR HFA0.09 MG/AC IH; +ZYPREXA 5MG5 MG PO
[2022-05-23 19:26] LABS: HEMATOCRIT 43.9 % (42.0-52.0); HEMOGLOBIN 14.6 g/dl (13.5-18.0); INR 1.8 (0.8-3.0); MEAN CELL VOLUME 82 fl (80.0-100.0); MEAN CORPUSCULAR HEMOGLOBIN 27 pg (27-31); MEAN CORPUSCULAR HGB CONC 33 g/dl (33.0-37.0); MEAN PLATELET VOLUME 10.7 fl (7.4-10.4); PLATELET COUNT 304 K/mm3 (130-400); PROTHROMBIN TIME 20.5 SECONDS (9.7-12.8); RED BLOOD COUNT 5.37 M/mm3 (4.20-5.60); REDCELL DISTRIBUTION WIDTH-CV 15.4 % (11.5-14.5)
[2022-05-23 19:42] LABS: ALBUMIN 3.3 gm/dL (3.4-4.8); CALCIUM 8.8 mg/dL (8.4-10.2); CREATININE, serum 1.17 mg/dL (0.72-1.25); POTASSIUM 4.6 mmol/L (3.5-4.5); TOTAL PROTEIN 6.6 gm/dL (6.2-8.1)
[2022-05-23 19:49] LABS: TROPONIN-I 0.022 ng/mL (0.00-0.033)
[2022-05-23 19:54] LABS: LYMPHOCYTE 11 % (20.0-51.0); NEUTROPHILS 73 % (42.0-75.2); PLATELET ESTIMATE NORMAL (NORMAL)
[2022-05-23 19:56] LABS: MICROCYTOSIS 1+
[2022-05-24] MEDS ORDERED: COMBIGAN 0.2%-0.5 ML OU (04:22)
[2022-05-24 04:38] LABS: COLLECTION METHOD CLEAN CATCH
[2022-05-24 04:42] LABS: ARTERIAL BLD GAS O2 SATURATION 94.8 % (92-100); ARTERIAL BLOOD GAS BASE EXCESS -1.3 (-2-2); ARTERIAL BLOOD GAS HCO3 21.1 meq/L (22-26); ARTERIAL BLOOD GAS PO2 72.3 mmHg (80-100); ARTERIAL BLOOD GAS pH 7.48 (7.35-7.45)
[2022-05-24 04:56] LABS: SQUAMOUS EPITHELIAL None Seen /hpf (0-10); URINE BACTERIA None Seen /hpf (NONE SEEN)
[2022-05-24 04:57] LABS: PH 6.5 (5.0-8.5); URINE APPEARANCE Clear (CLEAR/HAZY); URINE BLOOD TRACE-INTACT (NEGATIVE); URINE COLOR Yellow (YELLOW); URINE GLUCOSE Negative (NEGATIVE); URINE KETONE Negative (NEGATIVE); URINE NITRATE Negative (NEGATIVE); URINE PROTEIN(semi-quant) TRACE (NEGATIVE); URINE UROBILINOGEN 0.2 E.U/dL (0.2-1.0)
[2022-05-24 05:11] LABS: PHOSPHOROUS 3.1 mg/dL (2.3-4.7)
[2022-05-24 05:32] LABS: TSH w REFLEX 3.022 uIU/mL (0.350-4.940)
--- NOTE | 2022-05-24 10:34 | NUR ---
ZEESHAN attempted to contact the patients Minnie and was unsuccessful. After second attempt, phone was turned off. [facility] dispatch contacted to make contact with Minnie to talk about poc. Pachceo with the [facility] who states that they would not be able to accept a patient today, but will have a bed available tomorrow. ZEESHAN received phone call back from Minnie stating "Chadd can go into a home. I don't want him here. I tried that yesterday and it didn't work". Minnie also states that she reached out to a shelter called [facility] and they have a bed available for him to go with. Discussion held that even if they did have a bed available, his room and board would be an out of pocket expense. Minnie verbalizes that this is not something that she is able to afford. Informed Minnie that after speaking with the hospitalist, her second option is hospice care. Minnie verbalizes that this is the option that she would like to move forward with. Educated her that his cares would still be covered by his insurance, however room and board would be out of pocket but that the [facility] will work with her on this and to be readily accessible via phone for any contact from either the hospital or the [facility]. Minnie verbalizes her agreement to this.Code status discussed with Minnie and she would like to make the patient a DNR while here alone with starting comfort care measures here. Hospitalist notified of the above. Clinical referral faxed to Pacheco at the [facility].
[2022-05-24 13:05] VITALS: BP 112/79; PULSE 70
--- NOTE | 2022-05-24 13:35 | NUR ---
Air Operations Manager collaborated with ZEESHAN Conley and Dr. Dallas to assist PAtient and his family with discharge needs. Family chooses to accept referral to inpatient hospice facility [facility] reported to have bed availability on 05-25 and informed SW that the family with be private pay. Minnie, Patient's , reported that she will private pay. ZEESHAN will continue coordination with [facility] for discharge planning and transportation.
--- NOTE | 2022-05-24 15:21 | NUR ---
PATIENT HAS BEEN SLEEPING ON AND OFF. NEEDED MORPHINE FOR PAIN.
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
--- NOTE | 2022-05-24 20:05 | NUR ---
Patient assessed at this time, looks comfortable, on room air, with telesitter, call light and personal items within reach, bed alarm on.
[2022-05-24 20:23] VITALS: BP 141/88; PULSE 81; TEMP 97.9
--- NOTE | 2022-05-24 22:45 | NUR ---
Patient repositioned to his left side.
--- NOTE | 2022-05-25 01:43 | NUR ---
Repositioned patient to his right side, patient moaning at this time, morphine given as ordered PRN.
--- NOTE | 2022-05-25 04:03 | NUR ---
Patient resting in bed, eyes closed, looks comfortable.
[2022-05-25 08:08] VITALS: BP 151/81; PULSE 85; TEMP 98.3
--- NOTE | 2022-05-25 08:50 | NUR ---
Pt drowsy this AM, arousable but only interacting with staff to shake his head to questions. No signs of agitation or aggravation this AM, none reported from overnight houseperson RN. Refusing breakfast this AM, shaking his head when asked if he is hungry. Turned to right side. Vitals signs taken, assessment complete. No signs of pain or discomfort evident. Bed in lowest position with bed alarm turned on and call light within reach.
[2022-05-25] MEDS ORDERED: TYLENOL 500MG500 MG PO (10:33)
[2022-05-25] MEDS ORDERED: DULCOLAX S10 MG/SUPP RC (10:34)
[2022-05-25] MEDS ORDERED: ATIVAN 1MG T1 MG/TAB PO (10:37)
[2022-05-25] MEDS ORDERED: ROXANOL 20MG20 MG/ML PO (10:37)
--- NOTE | 2022-05-25 11:00 | NUR ---
Rehab Services Aide collaborated with Pacheco Abraham at [facility], and [facility] to coordinate discharge [facility]At[facility] to [facility] in [place], [place]. Patient is to discharge today with EMS transport estimated at 1300 from room 304 to [facility]. Transport documents completed and signed by , placed in chart with a copy provided to clerk Salguero.
--- NOTE | 2022-05-25 11:23 | NUR ---
[employer] Pump Station Operator faxed discharge orders to [facility].
--- NOTE | 2022-05-25 12:05 | NUR ---
REPORT GIVEN TO RN AT [facility]
--- NOTE | 2022-05-25 14:09 | NUR ---
Pt discharged to hospice house. Family alerted of transfer. Shankar in place upon transfer, all belongings in room transferred with patient. Patient calm at time of release. transported via EMS.
== END 2022-05-25 13:00 | disposition hospice, inpatient (51) ==
LOC: COL.ER 18:30 → MEDICAL 05-24 10:31
PROVIDERS: Nurse Practitioner; Nurse Practitioner Family; ADMIT Internal Medicine
DX: I48.0 Paroxysmal atrial fibrillation (principal); Z51.5 Encounter for palliative care; I11.0 Hypertensive heart disease with heart failure; I50.20 Unspecified systolic (congestive) heart failure; I25.10 Atherosclerotic heart disease of native coronary artery without angina pectoris; I08.0 Rheumatic disorders of both mitral and aortic valves; U07.1 COVID-19; R41.0 Disorientation, unspecified; F03.911 Unspecified dementia, unspecified severity, with agitation; R65.10 Systemic inflammatory response syndrome (SIRS) of non-infectious origin without acute organ dysfunction; R13.10 Dysphagia, unspecified; E87.20 Acidosis, unspecified; E78.5 Hyperlipidemia, unspecified; K21.9 Gastro-esophageal reflux disease without esophagitis; I47.1 Supraventricular tachycardia; N40.1 Benign prostatic hyperplasia with lower urinary tract symptoms; N39.498 Other specified urinary incontinence; R33.8 Other retention of urine; H40.9 Unspecified glaucoma; E87.5 Hyperkalemia; Z79.01 Long term (current) use of anticoagulants; Z59.1 Inadequate housing; Z59.89 Other problems related to housing and economic circumstances; Z79.899 Other long term (current) drug therapy
CPT/HCPCS: C9113; G0378; J1630; J1644; J2270; J7030